=== PATIENT | female | born 1950 | race Caucasian/White ===

== ENCOUNTER → 2020-02-24 12:05 | Outpatient (CLI) | payer MEDICARE, SELFPAY ==
--- NOTE | ~2020-02-24 | DEXA_ITS ---
Bone Density Report Name: Janet Barry Age: 69 Sex: Female Ethnicity: White Date of : 1950 Indication: osteopenia; postmenopausal Referring Provider: Maria Luisa Koenig Study: Bone densitometry was performed. Exam Date: February 24, 2020 Accession number: [id number] Bone Density: Region BMD T-score Z-score Classification AP Spine (L1, L2, L3) 0.874 -1.3 0.6 Osteopenia Femoral Neck (Left) 0.629 -2.0 -0.3 Osteopenia Total Hip (Left) 0.713 -1.9 -0.5 Osteopenia Femoral Neck (Right) 0.604 -2.2 -0.5 Osteopenia Total Hip (Right) 0.679 -2.2 -0.8 Osteopenia Total Hip Mean 0.696 -2.1 -0.7 Osteopenia World Health Organization criteria for BMD impression classify patients as: Normal (T-score at or above -1.0), Osteopenia (T-score between -1.0 and -2.5), or Osteoporosis (T-score at or below -2.5). 10-year Fracture Risk(1): Major Osteoporotic Fracture 12% Hip Fracture 2.1% Reported Risk Factors: [place] (), Neck BMD=0.604, BMI=29.8 (1) FRAX(R) Version 3.08. Fracture probability calculated for an untreated patient. Fracture probability may be lower if the patient has received treatment. Previous Exams: Region Exam Age BMD T-score BMD Change BMD Change Date g/cm2 vs Baseline vs Previous AP Spine(L1, L2, L3) 02/24/2020 69 0.874 -1.3 0.048* 0.048* 09/15/2017 67 0.826 -1.7 Total Hip(Left) 02/24/2020 69 0.713 -1.9 0.001 0.001 09/15/2017 67 0.712 -1.9 Total Hip(Right) 02/24/2020 69 0.679 -2.2 0.005 0.005 09/15/2017 67 0.674 -2.2 *Denotes significance at 95% confidence level, LSC for AP Spine = 0.022 g/cm2, LSC for Total Hip = 0.027 g/cm2 Clinical Information Provided by Patient: Has used the following medications: Vitamin D, Calcium Patient maximum height was 63.5 Menopause Age: 51 Drinks caffeinated beverages Onset of menses at age 16 Number of children 2 Impression: The patient has low bone mass, based on the Right Total Hip T-score. The patient has an estimated ten-year risk of hip fracture of 2.1% and an estimated ten-year risk of major fracture of 12%, based on the WHO FRAX algorithm. No significant bone loss was observed. Discussion: BONE DENSITY IS LOW AT ONE OR MORE SKELETAL SITES. This patient's lowest T-score is low at one or more skeletal sites. It meets the World Health Organization's (WHO) criteria for ?low bone mass? (T-score between -1.0 an
--- NOTE | ~2020-02-24 | CT_ITS ---
EXAMINATION:CT chest wo con DATE: 02/24/2020 12:54 INDICATION: Solitary pulmonary nodule. TECHNIQUE: Computed tomography (CT) of the chest was performed without intravenous contrast. Automate d exposure control and iterative reconstruction technique were employed. The dose-length product (DLP ) was 76.21 mGy-cm. COMPARISON: Chest CT 12/26/2017 FINDINGS: Scattered calcified pulmonary nodules and calcified hilar and mediastinal lymph nodes are c onsistent with old granulomatous disease. There is mild emphysema. There is mild scarring at right stephan ng apex. There is bronchiectasis in left upper lobe with air trapping. There is cystic bronchiectasis in apicoposterior segment left upper lobe. There is mild scarring at left lung apex. There are a few scattered nodules in the lungs measuring up to 3 mm, likely benign. No pleural effusion. The heart s ize is normal. There are coronary artery calcifications. No pericardial effusion. There are gallstone s in the gallbladder, which is normal in size. The bones are unremarkable. IMPRESSION: 1. Lung-RADS category 2: Benign appearance or behavior. Continue annual screening with noncontrast lo w-dose chest CT in 12 months. Reviewed, dictated and finalized at location A. IMPRESSION: 1. Lung-RADS category 2: Benign appearance or behavior. Continue annual screeni ng with noncontrast low-dose chest CT in 12 months.
--- NOTE | ~2020-02-24 | MM_ITS ---
EXAMINATION: MM screening [facility] BI w zainab HISTORY: Screening TECHNIQUE: Craniocaudal and mediolateral oblique 3-D tomosynthesis images were obtained and synthetic 2-D images were generated. CAD analysis was submitted and interpreted. COMPARISON: Comparison to multiple prior studies sequentially, with oldest reviewed study dated 12/20. BREAST PARENCHYMAL COMPOSITION: The breasts are heterogeneously dense, which may obscure small masses . FINDINGS: There is no evidence of suspicious mass, calcification, or architectural distortion to sugg est malignancy in either breast. There has been no suspicious interval change. IMPRESSION: 1. No mammographic evidence of malignancy. 2. Recommend routine screening mammography in one year. BI-RADS Category 1: Negative Reviewed, dictated and finalized at location A.
== END ==
PROVIDERS: PCP Nurse Practitioner Family; Visit Provider Nurse Practitioner Family
DX: Z12.31 Encounter for screening mammogram for malignant neoplasm of breast (principal); Z78.0 Asymptomatic menopausal state; R91.1 Solitary pulmonary nodule; M85.88 Other specified disorders of bone density and structure, other site; M85.852 Other specified disorders of bone density and structure, left thigh; M85.851 Other specified disorders of bone density and structure, right thigh
CPT/HCPCS: 71250; 77063; 77067; 77080

== ENCOUNTER 2020-04-13 01:29 | Outpatient (CLI) | payer MEDICARE, SELFPAY ==
[2020-04-13 17:41] LABS: SARS-CoV-2 RNA PCR Negative
== END 2020-04-13 01:30 | disposition home or self-care (01) ==
LOC: ANHCOVIDDT 01:32
PROVIDERS: PCP Nurse Practitioner Family; Visit Provider Internal Medicine Gastroenterology
DX: Z01.812 Encounter for preprocedural laboratory examination (principal); Z20.828 Contact with and (suspected) exposure to other viral communicable diseases
CPT/HCPCS: 87635; C9803; U0003

== ENCOUNTER 2020-04-15 03:11 | Day surgery (SDC) | payer MEDICARE, SELFPAY ==
[2020-04-10 10:31] VITALS: BMI 28.9
[2020-04-15 06:12] VITALS: BP 109/68; PULSE 100; RESP 18; TEMP 37; O2SAT 99; BMI 29.3
[2020-04-15] MEDS: LACTATED RINGERS 1,000 ML 150 ML IV CONT (06:23)
--- NOTE | 2020-04-15 07:11 | WPDANESEPPF ---
Anes - Initial Pre Proc Eval Procedure: Operation Date: 04/15/20 07:30 Proposed Procedures p Screening Colonoscopy - Myron Tam MD Date/Time: 04/15/20 07:11 Surgeon: Myron Tam MD Pre Op Diagnosis: Neoplasm Screening Patient Data Age: 69 Gender: F Height: 5 ft 3 in Weight: 75.1 kg Last Vital Signs Temp 98.6 F 04/15/20 06:12 Pulse 100 04/15/20 06:12 Resp 18 04/15/20 06:12 BP 109/68 04/15/20 06:12 Pulse Ox 99 04/15/20 06:12 Allergies Allergy/AdvReac Type Severity Reaction Status Date / Time No Known Allergies Allergy Mild Verified 04/15/20 06:10 Home Medications Medication Instructions Recorded Confirmed Type cholecalciferol (vitamin D3) 1,250 1,250 mcg PO WEEKLY 11/29/19 04/10/20 History mcg (50,000 unit) capsule mecobalamin (vitamin B12) 1,000 1,000 mcg PO DAILY 11/29/19 04/10/20 History mcg chewable tablet multivitamin 1 tablet PO DAILY 11/29/19 04/10/20 History varenicline 0.5 mg (11)-1 mg (42) See Rx Instructions PO PER PKG DIR 11/29/19 11/29/19 Rx tablets in a dose pack #53 each peg 3350-electrolytes 236 240 ml PO Q10M #4000 ml 04/09/20 Rx gram-22.74 gram-6.74 gram-5.86 gram solution francesco [id number]-yyr-[id number]-Ep-blq-hog-bor 2 tablet PO DAILY 04/10/20 04/10/20 History [Citracal-D3 Plus Magnesium] omeprazole 20 mg PO DAILY 04/10/20 04/15/20 History Patient hx anesthesia problems: none Family hx anesthesia problems: none PMFSH Past Medical History Medical History Lung nodule < 6cm on CT Osteopenia Tobacco use Surgical History Surgical History (Updated 11/29/19 @ 10:08 by Maria Luisa Koenig NP) History of lumbar surgery (~2018) Social History Social History (Updated 11/29/19 @ 10:19 by Maria Luisa Koenig NP) Smoking packs per day: 1 Smoking cigarettes per day: 20.0 Years smoked: 50 Smoking pack-years: 50.00 Smoking status: Former smoker Tobacco type: cigarettes Smoking end date: 06/26/16 Alcohol intake: current Substance use: never Substance use type: does not use Additional living arrangements comments: Janet lives with her , they own their own home. She designates her and daughter to make medical decisions for her if she is unable to to do so. She wishes to be a full code. Spiritual care concerns: No Anes - Eval Final PreProcedure Day of Procedure 04/15/20 07:11 Patient weight: normal Heart: regular rate and rhythm Lungs: clear to auscultation Airway: Mallampati scale Neurological: alert and oriented Last oral intake: >/= 8 hours ASA classification: II Emergent: no Anesthetic plan: proceed Anesthesia type and monitoring: general GIVS and standard monitoring Informed Consent: The patient's anesthetic plan and its attendant risks and benefits were discussed with the patient/family/POA. Questions were solicited and answers provided to the satisfaction of the patient/family/POA.
--- NOTE | 2020-04-15 07:36 | PM.HPGS ---
History of Present Illness History of Present Illness Consent: Risks, benefits, and alternatives have been discussed and questions answered. Patient agrees to proceed with procedure. Chief complaint: Neoplasm Screening Narrative: Janet Barry is a 69 year old female here for screening colonoscopy, last one about 15 years ago Review of Systems Constitutional: Constitutional: Denies headache(s) and Denies weakness Eyes: Eyes: Denies blurry vision ENT: Reports Normal hearing present, Denies headache(s) and Denies neck pain Cardiovascular: Cardiovascular: Denies chest pain and Denies dyspnea Respiratory: Respiratory: Denies dyspnea Gastrointestinal: Gastrointestinal: Reports no additional gastrointestinal complaints Genitourinary: Genitourinary: Denies dysuria Musculoskeletal: Musculoskeletal: Denies neck pain Integumentary/Breasts: Skin/Breast: Denies dry skin Neurologic: Reports Normal hearing present, Denies headache(s) and Denies weakness Psychiatric: Psychiatric: Denies anxiety Endocrine: Endocrine: Denies change in body appearance Hematologic/Lymphatic: Hematologic/Lymphatic: Denies easy bleeding Allergic/Immunologic: Allergic/Immunologic: Denies urticaria PMFSH Past Medical History Medical History Lung nodule < 6cm on CT Osteopenia Tobacco use Surgical History Surgical History (Updated 11/29/19 @ 10:08 by Maria Luisa Koenig NP) History of lumbar surgery (~2018) Social History Social History (Updated 11/29/19 @ 10:19 by Maria Luisa Koenig NP) Smoking packs per day: 1 Smoking cigarettes per day: 20.0 Years smoked: 50 Smoking pack-years: 50.00 Smoking status: Former smoker Tobacco type: cigarettes Smoking end date: 06/26/16 Alcohol intake: current Substance use: never Substance use type: does not use Additional living arrangements comments: Janet lives with her , they own their own home. She designates her and daughter to make medical decisions for her if she is unable to to do so. She wishes to be a full code. Spiritual care concerns: No Meds Home Medications and Allergies Home Medications Medication Instructions Recorded Confirmed Type cholecalciferol (vitamin D3) 1,250 1,250 mcg PO WEEKLY 11/29/19 04/10/20 History mcg (50,000 unit) capsule mecobalamin (vitamin B12) 1,000 1,000 mcg PO DAILY 11/29/19 04/10/20 History mcg chewable tablet multivitamin 1 tablet PO DAILY 11/29/19 04/10/20 History varenicline 0.5 mg (11)-1 mg (42) See Rx Instructions PO PER PKG DIR 11/29/19 11/29/19 Rx tablets in a dose pack #53 each peg 3350-electrolytes 236 240 ml PO Q10M #4000 ml 04/09/20 Rx gram-22.74 gram-6.74 gram-5.86 gram solution francesco [id number]-gyn-Z2-El-cxx-phf-bor 2 tablet PO DAILY 04/10/20 04/10/20 History [Citracal-D3 Plus Magnesium] omeprazole 20 mg PO DAILY 04/10/20 04/15/20 History Allergies Allergy/AdvReac Type Severity Reaction Status Date / Time No Known Allergies Allergy Mild Verified 04/15/20 06:10 Vital Signs Vital Signs - 24 hr 04/15/20 06:12 Temperature 98.6 F Pulse Rate 100 Respiratory Rate 18 Blood Pressure 109/68 Pulse Oximetry 99 Exam Const: General: comfortable and no acute distress HENMT: General nose exam: Normal nares present Eyes: General: appearance normal, both eyes and all related structures Neck: Neck: no JVD Resp: Auscultation: clear to auscultation bilaterally Cardio: Rate: regular rate Rhythm: regular rhythm GI: Inspection: non-distended GI Palp: Yes Soft to palpation Skin: General skin exam: normal color Neuro: General: gait normal Speech: normal speech Extrem: General: normal to inspection Psych: Mental Status: mental status grossly normal Assessment and Plan Assessment and plan (1) Encounter for screening for malignant neoplasm of colon: Code(s): Z12.11 - Encounter for screening for malignant neoplasm of colon Status: Acute Assessm
[2020-04-15 07:53] VITALS: BP 96/61; PULSE 88; RESP 16; O2SAT 99
[2020-04-15 08:03] VITALS: BP 92/67; PULSE 91; RESP 30; O2SAT 99
[2020-04-15 08:13] VITALS: BP 102/65; PULSE 82; RESP 17; O2SAT 100
== END 2020-04-15 08:22 | disposition home or self-care (01) ==
PROVIDERS: PCP Nurse Practitioner Family; Visit Provider Internal Medicine Gastroenterology
PROC: 0DJD8ZZ Inspection of Lower Intestinal Tract, Via Natural or Artificial Opening Endoscopic (ICD-10-PCS; CPT 45378; principal; 2020-04-15 07:30)
DX: Z12.11 Encounter for screening for malignant neoplasm of colon (principal); K57.30 Diverticulosis of large intestine without perforation or abscess without bleeding; K64.8 Other hemorrhoids; Z87.891 Personal history of nicotine dependence
CPT/HCPCS: G0121; J2704; J7120

== ENCOUNTER → 2022-01-13 08:12 | Outpatient (CLI) | payer MEDICARE, SELFPAY ==
--- NOTE | ~2022-01-13 | CT_ITS ---
EXAMINATION:CT lung screening DATE: 01/13/2022 08:41 INDICATION: Personal history of tobacco dependence. Current smoker with 50 pack year history. TECHNIQUE: Computed tomography (CT) of the chest was performed without intravenous contrast. Automate d exposure control and iterative reconstruction technique were employed. The dose-length product (DLP ) was 52.52 mGy-cm. COMPARISON: Chest CT 02/24/2020 FINDINGS: There is moderate emphysema. Calcified pulmonary nodules and calcified hilar lymph nodes ar e consistent with old granulomas disc disease. There is table mild scarring at the right lung apex. T here is stable mild scarring in left upper lobe. There is left upper lobe bronchiectasis including cy stic bronchiectasis in apicoposterior segment. No pleural effusion. The heart size is normal. There a re coronary artery calcifications. No pericardial effusion. There are gallstones in the gallbladder, which is normal in size. There is mild thoracic spondylosis. IMPRESSION: 1. Lung-RADS category 2: Benign appearance or behavior. Continue annual screening with noncontrast lo w-dose chest CT in 12 months. Reviewed, dictated and finalized at location A. IMPRESSION: 1. Lung-RADS category 2: Benign appearance or behavior. Continue annual screeni ng with noncontrast low-dose chest CT in 12 months.
== END ==
PROVIDERS: PCP Nurse Practitioner Family; Visit Provider Nurse Practitioner Family
DX: Z12.2 Encounter for screening for malignant neoplasm of respiratory organs (principal); Z87.891 Personal history of nicotine dependence
CPT/HCPCS: 71271

== ENCOUNTER → 2022-04-01 10:45 | Outpatient (CLI) | payer MEDICARE, SELFPAY ==
--- NOTE | ~2022-04-01 | MM_ITS ---
EXAMINATION: MM screening [facility] BI w zainab HISTORY: Screening mammogram, family history of breast cancer in two sisters. TECHNIQUE: Craniocaudal and mediolateral oblique 3-D tomosynthesis images were obtained and synthetic 2-D images were generated. CAD analysis was submitted and interpreted. COMPARISON: 02/24/2020, 10/23/2018, 09/15/2017, 06/03/2016 BREAST PARENCHYMAL COMPOSITION: The breasts are heterogeneously dense, which may obscure small masses . FINDINGS: No suspicious mass, calcification, or architectural distortion are identified in either vito ast to suggest malignancy. There has been no suspicious interval change. IMPRESSION: 1. No mammographic evidence of malignancy. 2. Recommend routine screening mammography in one year. BI-RADS Category 1: Negative Reviewed, dictated and finalized at location A.
--- NOTE | ~2022-04-01 | DEXA_ITS ---
Bone Density Report Name: VICKY SENIOR Age: 71 Sex: Female Ethnicity: White Date of : 1950 Indication: osteopenia; parental hip fracture;postmenopausal Referring Provider: Maria Luisa Koenig Study: Bone densitometry was performed. Exam Date: April 01, 2022 Accession number: [id number] Bone Density: Region BMD T-score Z-score Classification AP Spine (L1, L2, L3) 0.869 -1.4 0.7 Osteopenia Femoral Neck (Left) 0.639 -1.9 -0.1 Osteopenia Total Hip (Left) 0.684 -2.1 -0.6 Osteopenia Femoral Neck (Right) 0.585 -2.4 -0.6 Osteopenia Total Hip (Right) 0.653 -2.4 -0.9 Osteopenia Total Hip Mean 0.669 -2.3 -0.8 Osteopenia World Health Organization criteria for BMD impression classify patients as: Normal (T-score at or above -1.0), Osteopenia (T-score between -1.0 and -2.5), or Osteoporosis (T-score at or below -2.5). 10-year Fracture Risk(1): Major Osteoporotic Fracture 24% Hip Fracture 11% Reported Risk Factors: [place] (), Neck BMD=0.585, BMI=25.3, parental fracture, smoking (1) FRAX(R) Version 3.08. Fracture probability calculated for an untreated patient. Fracture probability may be lower if the patient has received treatment. Previous Exams: Region Exam Age BMD T-score BMD Change BMD Change Date g/cm2 vs Baseline vs Previous AP Spine(L1, L2, L3) 04/01/2022 71 0.869 -1.4 0.043* -0.006 02/24/2020 69 0.874 -1.3 0.048* 0.048* 09/15/2017 67 0.826 -1.7 Total Hip(Left) 04/01/2022 71 0.684 -2.1 -0.028* -0.029* 02/24/2020 69 0.713 -1.9 0.001 0.001 09/15/2017 67 0.712 -1.9 Total Hip(Right) 04/01/2022 71 0.653 -2.4 -0.021 -0.027 02/24/2020 69 0.679 -2.2 0.005 0.005 09/15/2017 67 0.674 -2.2 *Denotes significance at 95% confidence level, LSC for AP Spine = 0.022 g/cm2, LSC for Total Hip = 0.027 g/cm2 Clinical Information Provided by Patient: Parent has had a hip fracture Smokes Has used the following medications: Vitamin D, Calcium Patient maximum height was 63.5 Menopause Age: 51 Does not regularly consume dairy products Drinks caffeinated beverages Onset of menses at age 16 Number of children 2 Impression: The patient has low bone mass, based on the Right Total Hip T-score. The patient has an estimated ten-year risk of hip fracture of 11% and an estimated ten-year risk of major
== END ==
PROVIDERS: PCP Nurse Practitioner Family; Visit Provider Nurse Practitioner Family
DX: Z12.31 Encounter for screening mammogram for malignant neoplasm of breast (principal); Z78.0 Asymptomatic menopausal state; M85.88 Other specified disorders of bone density and structure, other site; M85.852 Other specified disorders of bone density and structure, left thigh; M85.851 Other specified disorders of bone density and structure, right thigh
CPT/HCPCS: 77063; 77067; 77080

== ENCOUNTER 2022-04-25 11:52 | Outpatient (CLI) | payer MEDICARE, SELFPAY ==
[2022-04-26 10:22] LABS: Kit Draw Collected
== END 2022-04-25 11:53 | disposition home or self-care (01) ==
LOC: ANHGOSHLAB 11:53
PROVIDERS: PCP Family Medicine; Visit Provider Nurse Practitioner Family
DX: E78.5 Hyperlipidemia, unspecified (principal); R53.83 Other fatigue; Z53.8 Procedure and treatment not carried out for other reasons
CPT/HCPCS: 99199; 36415

== ENCOUNTER 2023-02-21 08:02 | Outpatient (CLI) | payer MEDICARE, SELFPAY ==
[2023-02-21 15:16] LABS: Hematocrit 43.5 % (37.0-47.0); Hemoglobin 13.6 g/dL (12.0-15.0); Mean Corpuscular HGB Conc 31.3 g/dl (32-36); Mean Corpuscular Hemoglobin 30.8 pg (26-34); Mean Corpuscular Volume 98.4 fl (80-100); Mean Platelet Volume 10.6 fl (7.4-10.4); Platelet Count Result 280 k/mm3 (150-375); Red Blood Count 4.42 M/mm3 (4.2-5.4); Red Cell Distribution Width 13.1 % (11.5-14.5)
[2023-02-21 15:32] LABS: Vitamin D 25 Hydroxy 69.4 ng/mL
[2023-02-21 15:41] LABS: Alanine Aminotransferase 18 U/L (6-35); Albumin Level 4.3 g/dL (3.5-5.1); Alkaline Phosphatase 95 U/L (38-126); Anion Gap 4 mmol/L (8-16); Aspartate Amino Transferase 37 U/L (14-36); Bilirubin,Total 0.5 mg/dL (0.2-1.3); Blood Urea Nitrogen 9 mg/dL (7-17); Calcium 8.9 mg/dL (8.4-10.2); Carbon Dioxide 30 mmol/L (22-30); Chloride 105 mmol/L (98-107); Cholesterol 214 mg/dL (0-200); Estimated Glomerular Filt Rate > 60; Glucose 88 mg/dL (65-110); HDL Direct 49 mg/dL; Potassium 4.1 mmol/L (3.4-5.0); Sodium 139 mmol/L (137-145); Triglycerides 123 mg/dL (<150)
[2023-02-21 15:53] LABS: LDL Cholesterol Direct 124 mg/dL
[2023-02-21 17:28] LABS: Hemoglobin A1C 5.4 % (<5.7)
== END 2023-02-21 08:03 | disposition home or self-care (01) ==
PROVIDERS: PCP Family Medicine; Visit Provider Nurse Practitioner Family
DX: I10 Essential (primary) hypertension (principal); Z13.1 Encounter for screening for diabetes mellitus; Z13.21 Encounter for screening for nutritional disorder; Z13.220 Encounter for screening for lipoid disorders; Z13.29 Encounter for screening for other suspected endocrine disorder; E55.9 Vitamin D deficiency, unspecified; R73.9 Hyperglycemia, unspecified
CPT/HCPCS: 36415; 80053; 80061; 82306; 83036; 84443; 85027

== ENCOUNTER → 2023-07-31 13:19 | Outpatient (CLI) | payer MEDICARE, SELFPAY ==
--- NOTE | ~2023-07-31 | MM_ITS ---
EXAMINATION: MM screening [facility] BI w zainab HISTORY: Screening mammogram, family history of breast cancer in her sister. TECHNIQUE: Craniocaudal and mediolateral oblique 3-D tomosynthesis images were obtained and synthetic 2-D images were generated. CAD analysis was submitted and interpreted. COMPARISON: 04/01/2022, 02/24/2020, 10/23/2018 BREAST PARENCHYMAL COMPOSITION: The breasts are heterogeneously dense, which may obscure small masses . FINDINGS: No suspicious mass, calcification, or architectural distortion are identified in either vito ast to suggest malignancy. There has been no suspicious interval change. IMPRESSION: 1. No mammographic evidence of malignancy. 2. Recommend routine screening mammography in one year. BI-RADS Category 1: Negative Reviewed, dictated and finalized at location A. NE LATHE SET UP OPERATOR
== END ==
PROVIDERS: PCP Nurse Practitioner Family; Visit Provider Nurse Practitioner Family
DX: Z12.31 Encounter for screening mammogram for malignant neoplasm of breast (principal)
CPT/HCPCS: 77063; 77067

== ENCOUNTER 2024-01-10 08:41 | Outpatient (CLI) | payer MEDICARE, SELFPAY ==
[2024-01-10 13:06] LABS: Basophils Absolute Auto 0.1 K/mm3 (0.0-0.1); Basophils Percent Auto 0.9 % (0.2-1.2); Eosinophils Absolute Auto 0.2 K/mm3 (0-0.3); Eosinophils Percent Auto 3.3 % (0-4.4); Hematocrit 43.6 % (37.0-47.0); Hemoglobin 13.6 g/dL (12.0-15.0); Immature Granulocyte Absolute 0.02 K/mm3 (0.00-0.031); Immature Granulocyte Percent A 0.3 % (0-0.5); Lymphocytes Absolute Auto 1.29 K/mm3 (0.9-3.2); Lymphocytes Percent Auto 19.2 % (18.3-44.2); Mean Corpuscular HGB Conc 31.2 g/dl (32-36); Mean Corpuscular Hemoglobin 30.6 pg (26-34); Mean Corpuscular Volume 98.2 fl (80-100); Mean Platelet Volume 10.4 fl (7.4-10.4); Monocytes Absolute Auto 0.5 K/mm3 (0.1-0.6); Monocytes Percent Auto 6.7 % (2.6-8.5); Neutrophils Absolute Auto 4.7 K/mm3 (1.3-6.7); Neutrophils Percent Auto 69.6 % (45.5-73.1); Platelet Count Result 281 k/mm3 (150-375); Red Blood Count 4.44 M/mm3 (4.2-5.4); Red Cell Distribution Width 13.3 % (11.5-14.5); White Blood Count 6.7 K/mm3 (4.5-10.0)
[2024-01-10 13:38] LABS: Alanine Aminotransferase 18 U/L (6-35); Albumin Level 4.4 g/dL (3.5-5.1); Alkaline Phosphatase 85 U/L (38-126); Anion Gap 5 mmol/L (4-12); Aspartate Amino Transferase 50 U/L (14-36); Bilirubin,Total 0.5 mg/dL (0.2-1.3); Blood Urea Nitrogen 8 mg/dL (7-17); Calcium 9.7 mg/dL (8.4-10.2); Carbon Dioxide 31 mmol/L (22-30); Chloride 104 mmol/L (98-107); Cholesterol 206 mg/dL (0-200); Estimated Glomerular Filt Rate > 60; Glucose 88 mg/dL (65-110); HDL Direct 53 mg/dL; Potassium 4.2 mmol/L (3.4-5.0); Sodium 140 mmol/L (137-145); Triglycerides 110 mg/dL (<150)
[2024-01-10 13:41] LABS: Vitamin D 25 Hydroxy 78.7 ng/mL
[2024-01-10 13:49] LABS: LDL Cholesterol Direct 118 mg/dL
[2024-01-10 14:11] LABS: Hemoglobin A1C 5.8 % (<5.7)
== END 2024-01-10 08:42 | disposition home or self-care (01) ==
LOC: ANHGOSHLAB 08:43
PROVIDERS: PCP Family Medicine; Visit Provider Nurse Practitioner Family
DX: R73.9 Hyperglycemia, unspecified (principal); I10 Essential (primary) hypertension; Z00.00 Encounter for general adult medical examination without abnormal findings; Z13.220 Encounter for screening for lipoid disorders; Z13.29 Encounter for screening for other suspected endocrine disorder; E55.9 Vitamin D deficiency, unspecified
CPT/HCPCS: 36415; 80053; 80061; 82306; 83036; 84443; 85025

== ENCOUNTER 2024-08-02 10:40 | Outpatient (CLI) | payer MEDICARE, SELFPAY ==
--- NOTE | ~2024-08-02 | MM_ITS ---
EXAMINATION: MM screening [facility] BI w zainab HISTORY: Screening mammogram, family history of breast cancer in her sister. TECHNIQUE: Craniocaudal and mediolateral oblique 3-D tomosynthesis images were obtained and synthetic 2-D images were generated. CAD analysis was submitted and interpreted. COMPARISON: 07/31/2023, 04/01/2022, 02/24/2020 BREAST PARENCHYMAL COMPOSITION:Dense: The breasts are heterogeneously dense, which may obscure small masses. FINDINGS: No suspicious mass, calcification, or architectural distortion are identified in either vito ast to suggest malignancy. There has been no suspicious interval change. IMPRESSION: No mammographic evidence of malignancy. Recommend routine screening mammography in one year. BI-RADS Category 1: Negative Reviewed, dictated and finalized at location . NESS CONTINUITY COORDINATOR
== END 2024-08-02 10:41 | disposition home or self-care (01) ==
LOC: MICIMG 10:41
PROVIDERS: PCP Family Medicine; Visit Provider Nurse Practitioner Family
DX: Z12.31 Encounter for screening mammogram for malignant neoplasm of breast (principal)
CPT/HCPCS: 77063; 77067

== ENCOUNTER 2024-11-19 13:48 | Outpatient (CLI) | payer MEDICARE, SELFPAY ==
--- NOTE | ~2024-11-19 | DEXA_ITS ---
Bone Density Report Name: VICKY SENIOR Age: 74 Sex: Female Ethnicity: White Date of : 1950 Indication: postmenopausal; screening for osteoporosis; parental hip fracture; Referring Provider: RINA, JAVIER Stinson Study: Bone densitometry was performed. Exam Date: November 19, 2024 Accession number: [id number] Bone Density: Region BMD T-score Z-score Classification AP Spine(L1-L4) 0.827 -2.0 0.2 Osteopenia Femoral Neck (Left) 0.590 -2.3 -0.4 Osteopenia Total Hip (Left) 0.666 -2.3 -0.6 Osteopenia Femoral Neck (Right) 0.594 -2.3 -0.4 Osteopenia Total Hip (Right) 0.639 -2.5 -0.8 Osteoporosis Total Hip Mean 0.653 -2.4 -0.7 Osteopenia World Health Organization criteria for BMD impression classify patients as: Normal (T-score at or above -1.0), Osteopenia (T-score between -1.0 and -2.5), or Osteoporosis (T-score at or below -2.5). 10-year Fracture Risk: FRAX not reported because: Some T-score for Spine Total or Hip Total or Femoral Neck at or below -2.5 Clinical Information Provided by Patient: Parent has had a hip fracture Has used the following medications: Vitamin D, Calcium Patient maximum height was 63 Menopause Age: 51 Does not regularly consume dairy products Drinks caffeinated beverages Onset of menses at age 15 Number of children 2 Impression: The patient has osteoporosis, based on the Right Total Hip T-score. The patient has risk factors, including: parental hip fracture. Discussion: INCREASED RISK OF FRACTURE. BONE DENSITY IS UNDESIRABLY LOW AT ONE OR MORE SKELETAL SITES, CONSISTENT WITH POSTMENOPAUSAL OSTEOPOROSIS. This patient's lowest T-score meets the World Health Organization's (WHO) criteria for osteoporosis at one or more sites (T-score -2.5 or below). In untreated patients, the risk of osteoporotic fracture increases approximately two-fold for each 1.0 SD decrease in T-score. Low bone density is not the only risk factor for fracture; also consider factors such as patient's age, frailty or poor health, risk of falling, risk of injury, previous osteoporotic fracture, family history of osteoporosis, cigarette smoking, low body weight, etc. Not everyone with low bone mineral density has osteoporosis; osteomalacia and other metabolic bone disorders should also be considered. Patients who have osteoporosis should be evaluated for specific diseases and conditions (secondary causes) that may cause or contribute to bone loss. The [place] Association of Clinical Endocrinologists (AACE) and National Osteoporosis Foundation (NOF) recommend pharmacologic intervention for all postmenopausal women whose T-score is in this range. The patient should follow a healthful lifestyle (good nutrition with adequate calcium and vitamin D, and appropriate weight-bearing exercise). Follow-Up: Consider a repeat BMD and Vertebral Fracture Assessment (VFA) exam in 2 years or sooner if medically necessary, to reassess this patient's status. Reported by: RAYRAY on 11/19/2024 2:30:00 PM. Reviewed, dictated and finalized at location A.
--- OUTSIDE RECORDS SUMMARY | 2024-11-19 14:04 | XMS_ITS | CONTINUITY OF CARE DOCUMENT ---
Author Name ulisses gtz Address Unknown Organization [facility] Address [id number] [place] [address] [address] [place] [address] Phone [phone] Care Team Providers Care Skein Bleacher Name Role Phone ulisses gtz Unavailable Unavailable
== END 2024-11-19 13:49 | disposition home or self-care (01) ==
LOC: ANHIMG 13:56
PROVIDERS: PCP Family Medicine; Visit Provider Nurse Practitioner Family
DX: Z78.0 Asymptomatic menopausal state (principal); M81.0 Age-related osteoporosis without current pathological fracture
CPT/HCPCS: 77080

== ENCOUNTER 2025-06-12 07:56 | Outpatient (CLI) | payer MEDICARE, SELFPAY ==
--- OUTSIDE RECORDS SUMMARY | 2025-06-12 08:01 | XMS_ITS | Clinical Summary ---
Author Organization [address] Address [address] [place] [phone] Care Team Providers Care Yard Warehouse Worker Name Role Phone Unknown, Notinfile Primary Care Provider Unavail able Allergies No known active allergies Medications cetirizine (ZyrTEC) 10 mg tabletIndicatio ns:Hives Take 1 tablet (10 mg total) by mouth every 6 (six) hours as needed (rash and itching) 56 tablet 5 Active famotidine (PEPCID) 10 mg tabletIndicatio ns:Hives Take 2 tablets (20 mg total) by mouth 2 (two) times a day as needed for heartburn 56 tablet 5 Active hydrocortisone 2.5 % ointmentIndicat ions:Hives Apply topically every 12 (twelve) hours as needed for rash (itching) Avoid face and genital area 30 g 5 Active Active Problems No known active problems Encounters Date Type Department Care Team Description 04/28/2025 4:30 PM INTERNATIONAL CONTROLLER Office Visit [facility] at [address] [id number] Demetri Marin NP Hives (Primary Dx) from Last 3 Months Social History Tobacco Use Types Packs/Day Years Used Date Smoking Tobacco: Never Assessed Comments Unknown Sex and Gender Information Value Date Recorded Sex Assigned at Not on file Legal Sex Female 11:52 AM INTERNATIONAL CONTROLLER Gender Identity Not on file Sexual Orientation Not on file Last Filed Vital Signs Vital Sign Reading Time Taken Comments Blood Pressure 126/78 04/28/2025 4:26 PM INTERNATIONAL CONTROLLER Pulse 113 04/28/2025 4:26 PM INTERNATIONAL CONTROLLER Temperature 36.8 C (98.3 F) 04/28/2025 4:26 PM INTERNATIONAL CONTROLLER Respiratory Rate 20 04/28/2025 4:26 PM INTERNATIONAL CONTROLLER Oxygen Saturation 99% 04/28/2025 4:26 PM INTERNATIONAL CONTROLLER Inhaled Oxygen Concentration - - Weight 61.7 kg (136 lb) 04/28/2025 4:26 PM INTERNATIONAL CONTROLLER Height - - Body Mass Index - - Plan of Treatment Health Maintenance Due Date Last Done Comments Breast Cancer Screening-Mammogram 1950 Colon Cancer Screening-Colonoscopy 1950 Depression Screening 1950 Fall Risk Assessment 1950 Hepatitis C Screening 1950 Osteoporosis Screening-Bone Density Scan 1950 Hepatitis B Screening 1970 Well Visit 65+ 2017 Pneumococcal vaccine 65+ (3 of 3 - PCV20 or PCV21) 03/31/2024 03/31/2019, 03/18/2015, 03/14/2015 Covid-19 Vaccine (2024-2 6 season) 2025 03/16/2025, 03/18/2024, 03/21/2023, Additional history exists DTaP/Tdap/Td Vaccine (2 - Td or Tdap) 12/01/2030 12/01/2020 Zoster Vaccine Completed 06/13/2023, 03/26, 08/31/2017, Additional history exists Influenza Vaccine Completed 03/16/2025, , 03/21/2023, Additional history exists Insurance [facility] MEDICARE ADVANTAGE [facility] Address: [facility] [address] [place] [address] Care Teams Yard Warehouse Worker Relationship Specialty Start Date End Date Unknown, Notinfile PCP - General 04/28/25
[2025-06-12 18:43] LABS: Hematocrit 42.1 % (37.0-47.0); Hemoglobin 12.9 g/dL (12.0-15.0); Immature Granulocyte Percent A 0.4 % (0-0.5); Lymphocytes Absolute Auto 1.13 K/mm3 (0.9-3.2); Mean Corpuscular HGB Conc 30.6 g/dl (32-36); Mean Corpuscular Hemoglobin 31.2 pg (26-34); Mean Corpuscular Volume 101.9 fl (80-100); Nucleated Red Blood Cells Absolute Auto 0.000 K/mm3 (0.0-0.012); Nucleated Red Blood Cells Perc 0.0 % (0.0-0.2); Platelet Count Result 355 k/mm3 (150-375); Red Blood Count 4.13 M/mm3 (4.2-5.4); White Blood Count 9.2 K/mm3 (4.5-10.0)
[2025-06-12 19:27] LABS: Hemoglobin A1C 5.5 % (<5.7)
[2025-06-12 20:02] LABS: Alanine Aminotransferase 22 U/L (6-35); Albumin Level 3.7 g/dL (3.5-5.1); Alkaline Phosphatase 128 U/L (38-126); Anion Gap 6 mmol/L (4-12); Aspartate Amino Transferase 78 U/L (14-36); Bilirubin,Total 0.5 mg/dL (0.2-1.3); Blood Urea Nitrogen 10 mg/dL (7-17); Calcium 9.2 mg/dL (8.4-10.2); Carbon Dioxide 27 mmol/L (22-30); Chloride 108 mmol/L (98-107); Cholesterol 196 mg/dL (0-200); Estimated Glomerular Filt Rate > 60; Glucose 53 mg/dL (65-110); HDL Direct 48 mg/dL; Potassium 4.1 mmol/L (3.4-5.0); Sodium 141 mmol/L (137-145); Total Protein 6.3 g/dL (6.3-8.2); Triglycerides 138 mg/dL (<150)
== END 2025-06-12 07:57 | disposition home or self-care (01) ==
PROVIDERS: PCP Nurse Practitioner Family; Visit Provider Nurse Practitioner Family
DX: E78.5 Hyperlipidemia, unspecified (principal); R73.03 Prediabetes; Z11.59 Encounter for screening for other viral diseases; E55.9 Vitamin D deficiency, unspecified
CPT/HCPCS: 36415; 80053; 80061; 82306; 83036; 85025; 86803